=== PATIENT | female | born 1955 | race Caucasian/White ===

== ENCOUNTER 2024-04-11 09:18 | Outpatient (CLI) | payer MEDICARE, SELFPAY ==
[2024-04-11 10:03] LABS: Creatinine* 0.8 mg/dL (0.5-1.5); Estimated Glomerular Filt Rate 81 ml/min
== END 2024-04-11 09:19 | disposition home or self-care (01) ==
LOC: CT 09:25
PROVIDERS: Visit Provider Internal Medicine
DX: C14.8 Malignant neoplasm of overlapping sites of lip, oral cavity and pharynx (principal); R91.8 Other nonspecific abnormal finding of lung field; C34.11 Malignant neoplasm of upper lobe, right bronchus or lung
CPT/HCPCS: 36415; 71260; 82565; Q9967